=== PATIENT | female | born 1975 | race Caucasian/White ===

== ENCOUNTER → 2025-05-12 | Outpatient (CLI) | payer SELFPAY ==
[2025-05-12 16:57] LABS: Hematocrit 31.3 % (37-47); Hemoglobin 9.1 g/dL (12.0-15.0); Immature Granulocytes Count 0.010 X10^3/uL (0.0-0.0); Mean Corp Hgb Conc 29.1 g/dL (32-36); Mean Corpuscular Volume 78.8 fL (81-99); Mean Platelet Vol. 12.7 fl (6.2-12.0); NRBC Flagged by Analyzer 0 % (0-5); Platelet Count 262 K/mm3 (150-450); RBC Distribution Width CV 15.7 % (11.6-14.6); RBC Distribution Width SD 44.5 fl (35.1-43.9); Red Blood Count 3.97 M/mm3 (4.2-5.4); White Blood Count 5.3 K/mm3 (4.4-11.0)
== END | disposition home or self-care (01) ==
PROVIDERS: Referring Provider Obstetrics & Gynecology; Visit Provider Obstetrics & Gynecology
DX: N93.9 Abnormal uterine and vaginal bleeding, unspecified (principal); N84.0 Polyp of corpus uteri
CPT/HCPCS: 36415; 84443; 85025

== ENCOUNTER 2025-05-20 13:45 | Day surgery (SDC) | payer SELFPAY, OTHER ==
[2025-05-20] VITALS (11 sets, daily range): BP systolic 101–115; BP diastolic 60–75; PULSE 61–74; RESP 12–20; TEMP 36.4–36.9; O2SAT 100; BMI 22.7
[2025-05-20 14:33] LABS: Internal QC Validated? YES +Cl - CLEAR BKGD; Pregnancy, Urine Negative Negative; Record Kit Lot#,Urine Preg 980607
[2025-05-20 14:39] LABS: Hematocrit 29.6 % (37-47); Hemoglobin 8.9 g/dL (12.0-15.0); Immature Granulocytes Count 0.020 X10^3/uL (0.0-0.0); Mean Corp Hgb Conc 30.1 g/dL (32-36); Mean Corpuscular Volume 75.9 fL (81-99); Mean Platelet Vol. 11.7 fl (6.2-12.0); NRBC Flagged by Analyzer 0 % (0-5); Platelet Count 243 K/mm3 (150-450); RBC Distribution Width CV 16.0 % (11.6-14.6); RBC Distribution Width SD 43.6 fl (35.1-43.9); Red Blood Count 3.90 M/mm3 (4.2-5.4); White Blood Count 5.3 K/mm3 (4.4-11.0)
[2025-05-20] MEDS: Lactated Ringers 1,000 ML 15 ML IV (14:40)
[2025-05-20] MEDS: Midazolam 2 MG/2 ML Syringe IV (15:48)
[2025-05-20] MEDS: Lidocaine 1% (5 ml sdv) 5 ML Vial IV (15:52)
[2025-05-20] MEDS: fentaNYL 100 MCG/2 ML Ampul IV (15:54)
[2025-05-20] MEDS: Lidocaine 1% (30 ml sdv) 30 ML Vial (16:11)
== END 2025-05-20 17:56 | disposition home or self-care (01) ==
LOC: SDC 13:49 → AC 13:54
PROVIDERS: Anesthesiology; PCP Family Medicine; Referring Provider Obstetrics & Gynecology; Visit Provider Obstetrics & Gynecology
PROC: 0UB98ZZ Excision of Uterus, Via Natural or Artificial Opening Endoscopic (ICD-10-PCS; CPT 58558; principal; 2025-05-20 15:00)
DX: N93.9 Abnormal uterine and vaginal bleeding, unspecified (principal); N84.0 Polyp of corpus uteri
CPT/HCPCS: 58558; 00952; 81025; 85025; 86850; 86900; 86901; 88305